=== PATIENT | female | born 1950 | race Caucasian/White ===

== ENCOUNTER 2018-08-11 08:15 | Outpatient (CLI) | payer MEDICARE, BC ==
--- NOTE | 2018-08-11 15:25 | CT ---
CT CHEST WITHOUT CONTRAST: Date: 08/11/18 Multiple axial tomograms obtained through the chest without IV enhancement. INDICATION: Chronic cough. No comparison studies. FINDINGS: The lungs are well aerated and appear clear. There is no infiltrate or effusion. No evidence of pulmo nary mass or nodule. There is very mild bronchiectasis in the lung bases. Mediastinum unremarkable. No adenopathy. Images through the upper abdomen reveal a radiopaque gallstone in the gallbladder fundus. IMPRESSION: 1. No evidence of acute lung process. Question very mild bronchiectasis in the lung bases. 2. Cholelithiasis is noted. POS: MEKHI
== END 2018-08-11 08:16 | disposition home or self-care (01) ==
LOC: SCSCT 08:15
PROVIDERS: ATTEND Nurse Practitioner Family
DX: R05 Cough (principal); E78.5 Hyperlipidemia, unspecified; M25.512 Pain in left shoulder; G89.29 Other chronic pain; E11.65 Type 2 diabetes mellitus with hyperglycemia; K80.20 Calculus of gallbladder without cholecystitis without obstruction
CPT/HCPCS: 71250

== ENCOUNTER 2023-06-25 09:32 | Outpatient (CLI) | payer MEDICARE, BC | END 2023-06-25 09:33 | disposition home or self-care (01) | LOC: RAD 09:32 | PROVIDERS: ATTEND Internal Medicine Critical Care Medicine | DX: R06.00 Dyspnea, unspecified (principal) | CPT/HCPCS: 71046 ==

== ENCOUNTER 2024-07-21 07:37 | Outpatient (CLI) | payer MEDICARE, BC | END 2024-07-21 07:38 | disposition home or self-care (01) | LOC: NM 07:37 | PROVIDERS: ATTEND Internal Medicine | DX: R68.81 Early satiety (principal); K30 Functional dyspepsia | CPT/HCPCS: 78264 ==